=== PATIENT | female | born 1990 | race Caucasian/White ===

== ENCOUNTER 2019-07-27 13:04 | Emergency (ER) | payer BC ==
[~2019-07-27] VITALS: Ht 167.6 cm; Wt 113.6 kg
[2019-07-27] MEDS ORDERED: IV NORMAL SALINE 1,000ML 1,000 ML IV ONE (13:15)
[2019-07-27] MEDS ORDERED: methylPREDNISolone SOD SUCC PF 125 MG/2 ML VIAL. IV ONE (13:15)
[2019-07-27] MEDS ORDERED: diphenhydrAMINE 50 MG/ML VIAL IVP ONE (13:15)
[2019-07-27] MEDS ORDERED: FAMOTIDINE 20 MG/2 ML VIAL IVP ONE (13:15)
[2019-07-27] MEDS ORDERED: ONDANSETRON PF 4 MG/2 ML VIAL. ONE (13:32)
[2019-07-27 13:39] VITALS: BP 150/75
[2019-07-27] MEDS ORDERED: DIPH25CA58 PO (16:17)
[2019-07-27] MEDS ORDERED: PRED20TA PO (16:17)
[2019-07-27] MEDS ORDERED: FAMO-63 PO (16:17)
--- NOTE | 2019-07-27 16:17 | PHYS DOC ---
Past History Past Medical History: No Pertinent History Past Surgical History: No Surgical History Alcohol Use: None Adult General Chief Complaint Chief Complaint: ALLERGIC REACTION HPI HPI Patient is a 28-year-old female who presented to ER today due to allergic reaction an hour after she took one dose of Augmentin. She says she took amoxicillin product in the past without a problem. Patient had an infection to 1 of her ear piercing, her doctor evaluated her today put on Augmentin. Patient took one dose and she was driving home, then she started having itchy feeling in her throat, itchy rash to all over her body, trouble breathing so she came in here for evaluation. Patient denies any other medication. Review of Systems Review of Systems Constitutional: Denies fever or chills [] Eyes: Denies change in visual acuity, redness, or eye pain [] HENT: Denies nasal congestion or sore throat. POSITIVE FOR FEELING LIKE HER THROAT IS SWELLING. Respiratory: Denies cough , POSITIVE FOR shortness of breath . Cardiovascular: No additional information not addressed in HPI [] GI: Denies abdominal pain, nausea, vomiting, bloody stools or diarrhea [] : Denies dysuria or hematuria [] Musculoskeletal: Denies back pain or joint pain [] Integument:POSITIVE FOR ITCHING RASH, Neurologic: Denies headache, focal weakness or sensory changes [] Endocrine: Denies polyuria or polydipsia [] All other systems were reviewed and found to be within normal limits, except as documented in this note. Current Medications Current Medications Current Medications Medications (Trade) Dose Ordered Sig/Anthony Start Time Stop Time Status Last Admin Dose Admin Diphenhydramine HCl (Benadryl) 50 mg 1X ONCE 07/27/19 13:15 07/27/19 13:31 DC 07/27/19 13:29 50 MG Epinephrine HCl (EPINEPHrine AMPULE) 0.3 mg 1X ONCE 07/27/19 13:15 07/27/19 13:32 DC 07/27/19 13:23 0.3 MG Famotidine (Pepcid Vial) 20 mg 1X ONCE 07/27/19 13:15 07/27/19 13:31 DC 07/27/19 13:29 20 MG Methylprednisolone Sodium Succinate (SOLU-Medrol 125MG VIAL) 125 mg 1X ONCE 07/27/19 13:15 07/27/19 13:31 DC 07/27/19 13:29 125 MG Ondansetron HCl (Zofran) 4 mg STK-MED ONCE 07/27/19 13:32 07/27/19 13:32 DC Sodium Chloride 1,000 ml @ 1,000 mls/hr 1X ONCE 07/27/19 13:15 07/27/19 14:14 DC 07/27/19 13:24 1,000 MLS/HR Allergies Allergies Allergies Coded Allergies Type Severity Reaction Last Updated Verified amoxicillin Allergy Intermediate hives 07/27/19 Yes Physical Exam Physical Exam Constitutional: Well developed, well nourished, no acute distress, non-toxic appearance. [] HENT: Normocephalic, atraumatic, bilateral external ears normal, oropharynx moist, no oral exudates, nose normal. [] Eyes: PERRLA, EOMI, conjunctiva normal, no discharge. [] Neck: Normal range of motion, no tenderness, supple, no stridor. [] Cardiovascular:Heart rate regular rhythm, no murmur [] Lungs & Thorax: Bilateral breath sounds clear to auscultation [] Abdomen: Bowel sounds normal, soft, no tenderness, no masses, no pulsatile masses. [] Skin: Warm, dry, widespread maculopapular rash on face , chest , neck, extremities, and trunk area Back: No tenderness, no CVA tenderness. [] Extremities: No tenderness, no cyanosis, no clubbing, ROM intact, no edema. [] Neurologic: Alert and oriented X 3, normal motor function, normal sensory function, no focal deficits noted. [] Psychologic: Affect normal, judgement normal, mood normal. [] Current Patient Data Vital Signs Vital Signs Date Time Temp Pulse Resp B/P (MAP) Pulse Ox O2 Delivery O2 Flow Rate FiO2 07/27/19 13:39 97.9 130 26 150/75 (100) 98 Room Air EKG EKG [] Radiology/Procedures Radiology/Procedures [] Course & Med Decision Making Course & Med Decision Making Pertinent Labs and Imaging studies reviewed. (See chart for details) Patient has severe allergic reaction to the Augmentin that she was prescribed today. Patient was given medication in the ER today, her symptoms improved significantly, her rash disappeared, she denies any trouble breathing or any trouble swallowing. Patient wasl be discharged home, she was instructed to never take amoxicillin productive again. Patient will need to follow with an allergy doctor for further testing. sHe was amenable to plan of care. Her doctor trevon coello put her on a different antibiotic for her ear piercing infection. sHe was observed in the ER for 4 hours. Critical care time was [60] minutes exclusive of procedures. Dragon Disclaimer Dragon Disclaimer This electronic medical record was generated, in whole or in part, using a voice recognition dictation system. Departure Departure: Impression: Primary Impression: Allergic reaction due to antibacterial drug Disposition: HOME, SELF-CARE Condition: IMPROVED Referrals: SAM GIFFORD (PCP) FOLLOW UP WITH YOUR DOCTOR IN 2 DAYS FOR REEVALUATION Patient Instructions: Allergies, Generic Additional Instructions: Thank you for visiting our Emergency Department. We appreciate you trusting us with your care. If any additional problems come up don't hesitate to return to visit us. Please follow up with your primary care provider so they can plan additional care if needed and know about the problem that you had. If symptoms worsen come back to the Emergency Department. Any concerning symptoms that start such as chest pain, shortness of air, weakness or numbness on one side of the body, running high fevers or any other concerning symptoms return to the ER. Scripts Diphenhydramine Hcl (BENADRYL) 25 Mg Capsule 25 MG PO Q4HRS PRN for ITCHING, #30 CAP Prov: GRAZYNA BANEGAS DO 07/27/19 Famotidine (PEPCID) 20 Mg Tablet 20 MG PO DAILY for ALLERGY for 5 Days, #5 TAB Prov: GRAZYNA BANEGAS DO 07/27/19 Prednisone (PREDNISONE) 20 Mg Tablet 1 TAB PO DAILY for ALLERGY for 5 Days, #5 TAB Prov: GRAZYNA BANEGAS DO 07/27/19 GRAZYNA BANEGAS DO Jul 27, 2019 16:17
== END 2019-07-27 16:26 | disposition home or self-care (01) ==
LOC: ER 13:04
DX: T78.40XA Allergy, unspecified, initial encounter (principal); T36.0X5A Adverse effect of penicillins, initial encounter; Z88.1 Allergy status to other antibiotic agents; Y92.89 Other specified places as the place of occurrence of the external cause
CPT/HCPCS: 96372; 96374; 96375; 99284; J0171; J1200; J2930; J3490; J7030